=== PATIENT | male | born 1945 | race Caucasian/White ===

== ENCOUNTER 2020-12-27 12:45 | Emergency (ER) | payer OTHER, MEDICARE ==
[2020-12-27 12:57] VITALS: BP 112/55; PULSE 55
[2020-12-27] MEDS ORDERED: Sodium Chloride 0.9% 10 ML Syringe FLUSH PRN (13:20)
--- NOTE | 2020-12-27 13:57 | EDM.PDOC ---
ED HPI GENERAL MEDICAL PROBLEM - General Chief Complaint: General Time Seen by Provider: 12/27/20 13:00 Source of Information: Reports: Patient History Limitations: Reports: No Limitations - History of Present Illness INITIAL COMMENTS - FREE TEXT/NARRATIVE: Pt. presents to ER with complaints of acute onset R sided facial numbness and bilateral posterior lower extremity numbness. Pt. has a history of Lewey Body dementia and is relying heavily on his regarding the onset and timing of symptoms. Pt. states that the facial numbness has resolved but he continues to have numbness in the posterior aspect of his lower legs. The facial numbness lasted about 30 min. and was resolved by the time he arrived to ER (onset 12:00 today). He also complained of "dizziness". Pt. states that he was [place] with his at onset of symptoms. states that his speech was fluent throughout the event. She did not notice any facial droop, dysarthria or aphasia. Pt. denies any headache. He denies any acute vision loss or change. Pt. states that the facial numbness today is new, but he states that he has experienced numbness in his lower extremities intermittently in the past. He states that the numbness today is isolated to the posterior aspect of both legs. Pt. denies any numbness/tingling/weakness in upper extremities or torso, vision loss or change, headache, neck pain, new gait disturbances. [facility], he has a slow, shuffling gait which is present on arrival to ER today. Pt. is currently on plavix for CAD. He is not on coumadin or other anticoagulati on. Denies any history of recent intracranial pathology or surgery. Denies any recent episodes of bleeding or blood loss. Denies any history of previous embolic or hemorrhagic CVA in the past. No history of previous craniotomy, aneurysm, brain tumors or masses. [facility] They were contacted to send any neurology noted to determine what this patient's baseline neuro status is given his history of Lewey Body. Unfortunately they were unable to locate a note with a recent neuro exam on it. Pt. is on rivastigmine patch,donepezil and quetiapine. Onset: Today Onset Date: 12/27/20 Onset Time: 12:00 Location: Reports: Generalized - Related Data Allergies Allergy/AdvReac Type Severity Reaction Status Date / Time ag chemicals Allergy Itching Uncoded 12/27/20 13:01 Home Meds: Home Meds Multivitamin with Minerals [Multiple Vitamin] 1 tab PO DAILY 02/14/15 [History] Clopidogrel [Plavix] 75 mg PO DAILY 07/02/16 [History] Isosorbide Mononitrate [Isosorbide Mononitrate ER] 30 mg PO DAILY 07/02/16 [History] Metoprolol Succinate [Toprol XL 100mg] 50 mg PO DAILY 07/02/16 [History] Donepezil HCl [Aricept] 10 mg PO DAILY 12/27/20 [History] atorvaSTATin [Lipitor] 5 mg PO BEDTIME 12/27/20 [History] Past Medical History Other HEENT History: glasses Cardiovascular History: Reports: CAD, High Cholesterol, Hypertension, Stents Other Neuro History: lewy body dementia Other Dermatologic History: shingles - Past Surgical History Cardiovascular Surgical History: Reports: Coronary Artery Stent Social & Family History - Tobacco Use Tobacco Use Status *Q: Never Tobacco User ED ROS GENERAL - Review of Systems Review Of Systems: See Below Constitutional: Reports: No Symptoms. Denies: Fever, Chills, Malaise, Weakness, Fatigue, Weight Loss, Weight Gain HEENT: Reports: No Symptoms Respiratory: Reports: No Symptoms Cardiovascular: Reports: No Symptoms Endocrine: Reports: No Symptoms GI/Abdominal: Reports: No Symptoms : Reports: No Symptoms Musculoskeletal: Reports: No Symptoms Skin: Reports: No Symptoms Neurological: Reports: Dizziness, Numbness, Pre-Existing Deficit, Difficulty Walking (slow, shffling gait) Psychiatric: Reports: No Symptoms Hematologic/Lymphatic: Reports: No Symptoms Immunologic: Reports: No Symptoms ED EXAM, GENERAL - Physical Exam Exam: See Below General Appearance: Alert, WD/WN, No Apparent Distress Eye Exam: Bilateral Eye: EOMI, Normal Fundi, Normal Inspection, PERRL Throat/Mouth: Normal Inspection, Normal Lips, Normal Teeth, Normal Gums, Normal Oropharynx, Normal Voice, No Airway Compromise Head: Atraumatic, Normocephalic Neck: Normal Inspection, Supple, Non-Tender, Full Range of Motion Respiratory/Chest: No Respiratory Distress, Lungs Clear, Normal Breath Sounds, No Accessory Muscle Use, Chest Non-Tender Cardiovascular: Normal Peripheral Pulses, Regular Rate, Rhythm, No Edema, No JVD, No Murmur Peripheral Pulses: 4+: Radial (L) GI/Abdominal: Soft, Non-Tender, No Organomegaly, No Distention, No Abnormal Bruit, No Mass (Male) Exam: Deferred Rectal (Males) Exam: Deferred Back Exam: Normal Inspection, Full Range of Motion Extremities: Normal Inspection, Normal Range of Motion, Non-Tender, No Pedal Edema, Normal Capillary Refill Neurological: Alert, Oriented, CN II-XII Intact, Normal Cognition, Normal Reflexes, Abnormal Gait, Sensory/Motor Deficit (R side of face, resolved, bilateral posterior legs) Psychiatric: Normal Affect, Flat Affect Skin Exam: Warm, Dry, Intact, Normal Color, No Rash Lymphatic: No Adenopathy #1 Interpretation Rhythm: NSR [place]: Normal P-Wave: Present QRS: Normal ST-T: Normal QT: Normal Course - Vital Signs Last Recorded V/S: Last Vital Signs Temp 36.5 C 12/27/20 12:45 Pulse 55 L 12/27/20 12:45 Resp 16 12/27/20 12:45 BP 112/55 L 12/27/20 12:45 Pulse Ox 97 12/27/20 12:45 - Orders/Labs/Meds Orders: Active Orders 24 hr Category Date Time Status Ang Neck [CT] Stat Exams 12/27/20 14:54 Ordered Peripheral IV Insertion Adult [OM.PC] Routine Oth 12/27/20 13:21 Ordered Labs: Laboratory Tests 12/27/20 12/27/20 12/27/20 Range/Units 13:30 13:30 13:30 WBC 7.0 (4.0-10.0) x10^3/uL RBC 4.03 L (4.5-6.0) x10^6/uL Hgb 13.7 L (14.0-18.0) g/dL Hct 38.8 L (40.0-52.0) % MCV 96.3 H (78.0-93.0) fL MCH 34.0 H (26.0-32.0) pg MCHC 35.3 (32.0-36.0) g/dL RDW Coeff of Amaury 12.2 (10.0-15.0) % Plt Count 163 (130-400) x10^3/uL Neut % (Auto) 64.6 (50.0-80.0) % Lymph % (Auto) 19.7 L (25.0-50.0) % Coal % (Auto) 10.1 (2.0-11.0) % Eos % (Auto) 5.3 H (0.0-4.0) % Baso % (Auto) 0.3 (0.2-1.2) % PT 10.6 (9.9-12.5) SEC INR 1.0 L (2.0-3.5) APTT (25.6-32.8) SEC Sodium 142 (136-145) mmol/L Potassium 4.0 (3.5-5.1) mmol/L Chloride 106 (98-107) mmol/L Carbon Dioxide 25 (21-32) mmol/L Anion Gap 15.0 (5-15) mmol/L BUN 20 H (7-18) mg/dL Creatinine 0.9 (0.70-1.30) mg/dL Est Cr Clr Drug Dosing TNP Estimated GFR (MDRD) > 60 Glucose 96 (70-99) mg/dL Calcium 8.2 L (8.5-10.1) mg/dL Corrected Calcium 8.6 (8.5-10.1) mg/dL Phosphorus 4.0 (2.6-4.7) mg/dL Magnesium 2.1 (1.8-2.4) mg/dL Total Bilirubin 0.4 (0.2-1.0) mg/dL AST 21 (15-37) U/L ALT 32 (16-63) U/L Alkaline Phosphatase 79 (46-116) U/L Troponin I High Sens 7 (<=76) ng/L Total Protein 6.6 (6.4-8.2) g/dL Albumin 3.5 (3.4-5.0) g/dL Globulin 3.1 Albumin/Globulin Ratio 1.13 TSH, Ultra Sensitive 1.199 (0.358-3.74) uIU/mL 12/27/20 Range/Units 13:30 WBC (4.0-10.0) x10^3/uL RBC (4.5-6.0) x10^6/uL Hgb (14.0-18.0) g/dL Hct (40.0-52.0) % MCV (78.0-93.0) fL MCH (26.0-32.0) pg MCHC (32.0-36.0) g/dL RDW Coeff of Amaury (10.0-15.0) % Plt Count (130-400) x10^3/uL Neut % (Auto) (50.0-80.0) % Lymph % (Auto) (25.0-50.0) % Coal % (Auto) (2.0-11.0) % Eos % (Auto) (0.0-4.0) % Baso % (Auto) (0.2-1.2) % PT (9.9-12.5) SEC INR (2.0-3.5) APTT 24.1 L (25.6-32.8) SEC Sodium (136-145) mmol/L Potassium (3.5-5.1) mmol/L Chloride (98-107) mmol/L Carbon Dioxide (21-32) mmol/L Anion Gap (5-15) mmol/L BUN (7-18) mg/dL Creatinine (0.70-1.30) mg/dL Est Cr Clr Drug Dosing Estimated GFR (MDRD) Glucose (70-99) mg/dL Calcium (8.5-10.1) mg/dL Corrected Calcium (8.5-10.1) mg/dL Phosphorus (2.6-4.7) mg/dL Magnesium (1.8-2.4) mg/dL Total Bilirubin (0.2-1.0) mg/dL AST (15-37) U/L ALT (16-63) U/L Alkaline Phosphatase (46-116) U/L Troponin I High Sens (<=76) ng/L Total Protein (6.4-8.2) g/dL Albumin (3.4-5.0) g/dL Globulin Albumin/Globulin Ratio TSH, Ultra Sensitive (0.358-3.74) uIU/mL Meds: Medications Discontinued Medications Generic Name Dose Route Start Last Admin Trade Name Freq PRN Reason Stop Dose Admin Aspirin 324 mg 12/27/20 16:49 12/27/20 16:53 Aspirin 81 Mg Tab.Chew PO 12/27/20 16:50 324 mg ONETIME ONE Administration Sodium Chloride 10 ml 12/27/20 13:20 Sodium Chloride 0.9% 10 Ml Syringe FLUSH ASDIRECTED PRN Keep Vein Open - Radiology Interpretation Free Text/Narrative:: CT brain without contrast negative for acute pathology CTA head and neck negative for acute pathology or evidence of acute stroke. Departure - Departure Time of Disposition: 17:18 Disposition: Home, Self-Care 01 Clinical Impression: TIA (transient ischemic attack) - Discharge Information Instructions: Transient Ischemic Attack, [id number] Referrals: PCP,Not In Area [Primary Care Provider] - Forms: ED Department Discharge Additional Instructions: I spoke with Dr. Brandt, neurologist at [facility]. He suggests starting baby aspirin 81mg once daily in addition to your Plavix. You can follow-up tomorrow with Dr. Garsia tomorrow. Return to ER if you develop symptoms such as facial or extremity numbness/weakness, trouble speaking, walking, vision loss or change. Sepsis Event Note (ED) - Evaluation Sepsis Screening Result: No Definite Risk - Focused Exam Vital Signs: Vital Signs Temp Pulse Resp BP Pulse Ox 12/27/20 12:45 36.5 C 55 L 16 112/55 L 97 - Problem List Review Problem List Initiated/Reviewed/Updated: Yes - My Orders Last 24 Hours: My Active Orders 12/27/20 13:21 Peripheral IV Insertion Adult [OM.PC] Routine 12/27/20 14:54 Ang Neck [CT] Stat - Assessment/Plan Last 24 Hours: My Active Orders 12/27/20 13:21 Peripheral IV Insertion Adult [OM.PC] Routine 12/27/20 14:54 Ang Neck [CT] Stat Plan: Discussed case with Dr. Brandt, neurologist senior data integration developer at [facility]. He advised having the patient follow-up in the clinic tomorrow, since all of the patient
--- NOTE | 2020-12-27 14:50 | CT ---
[id number] CT/CT Head WO IV EXAM: NONCONTRAST HEAD CT INDICATION: RIGHT SIDED FACIAL NUMBNESS. COMPARISON: None. DISCUSSION: The ventricles and sulci are normal in size and configuration. Mild multifocal white matter hypoattenuation is nonspecific, but generally ascribed to chronic small vessel ischemia. No mass effect or midline shift. No acute hemorrhage or extra-axial fluid collection. No acute territorial infarct is identified. A limited look at the orbits and paranasal sinuses is unremarkable. IMPRESSION: 1. No acute findings. Tien Sales MD 12/27/20 [id number] Thank you for allowing us to participate in the care of your patient.
[2020-12-27 15:22] LABS: CHLORIDE,CL 106 mmol/L (98-107); SODIUM,NA 142 mmol/L (136-145)
--- NOTE | 2020-12-27 16:19 | CT ---
[id number] CT/CTA Head Neck EXAM: CT angiogram head and neck INDICATION: RIGHT SIDED FACIAL NUMBNESS. COMPARISON: Head CT same date. DISCUSSION: Aortic arch: Scattered atherosclerotic plaque without other abnormality identified in the partially imaged arch. Right carotid artery: Hard and soft plaque at the common carotid artery bifurcation and mild hard plaque within the cavernous segment of the internal carotid artery. No significant stenosis, aneurysmal dilation, dissection or other acute findings. Left carotid artery: Mild tortuosity of the internal carotid artery. Mild hard plaque at the common carotid artery bifurcation and involving the cavernous segment of the internal carotid artery without significant stenosis, aneurysmal dilation, dissection or other acute findings. Right vertebral artery: Normal in caliber. No significant stenosis or other abnormality. Left vertebral artery: Normal in caliber. No significant stenosis or other abnormality. Basilar artery: Normal in caliber. No significant stenosis or other abnormality. [place] of [place]: origin of the left posterior cerebral artery, normal variant. The [place] of [place] is otherwise unremarkable with no vessel cut off, significant stenosis, aneurysm, or other acute findings. Dural sinuses, jugular veins and cerebral veins: Limited evaluation of the cerebral veins, dural sinuses and jugular veins is unremarkable. Brain parenchyma: Unremarkable. The neck soft tissues: Unremarkable. Osseous structures: Moderate cervical spondylosis. IMPRESSION: 1. No acute findings. Tien Sales MD 12/27/20 [id number] Thank you for allowing us to participate in the care of your patient.
[2020-12-27] MEDS ORDERED: Aspirin 81 MG Tab.Chew PO ONE (16:49)
== END 2020-12-27 17:01 | disposition home or self-care (01) ==
LOC: VM.ED 12:45
DX: G45.9 Transient cerebral ischemic attack, unspecified (principal); I25.10 Atherosclerotic heart disease of native coronary artery without angina pectoris; I10 Essential (primary) hypertension; E78.00 Pure hypercholesterolemia, unspecified; Z88.8 Allergy status to other drugs, medicaments and biological substances; Z79.899 Other long term (current) drug therapy
CPT/HCPCS: 70450; 70496; 80053; 83735; 84100; 84443; 84484; 85025; 85610; 85730; 93005; 93010; 99284; 99284-25; A9270-GY

== ENCOUNTER 2021-09-19 04:42 | Emergency (ER) | payer OTHER, MEDICARE ==
[2021-09-19 05:33] VITALS: BP 118/66; PULSE 52
== END 2021-09-19 05:40 | disposition home or self-care (01) ==
LOC: VM.ED 04:42
DX: S01.01XA Laceration without foreign body of scalp, initial encounter (principal); I25.10 Atherosclerotic heart disease of native coronary artery without angina pectoris; E78.00 Pure hypercholesterolemia, unspecified; I10 Essential (primary) hypertension; Z95.5 Presence of coronary angioplasty implant and graft; Z79.02 Long term (current) use of antithrombotics/antiplatelets; Z79.899 Other long term (current) drug therapy; Z91.048 Other nonmedicinal substance allergy status; W06.XXXA Fall from bed, initial encounter
CPT/HCPCS: 12001; 70450; 99283; 99283-25

== ENCOUNTER 2022-01-03 11:16 | Emergency (ER) | payer OTHER, MEDICARE ==
[2022-01-03] MEDS ORDERED: Sodium Chloride 0.9% 10 ML Syringe FLUSH PRN (11:52)
[2022-01-03] MEDS ORDERED: Sodium Chloride 0.9% 1,000 ML IV SCH (12:00)
[2022-01-03 12:22] LABS: CHLORIDE,CL 106 mmol/L (98-107); SODIUM,NA 140 mmol/L (136-145)
[2022-01-03 12:23] LABS: ANION GAP 13.8 mmol/L (5-15); ESTIMATED GFR 78 mL/min (>=60)
[2022-01-03 12:33] VITALS: BP 119/56; PULSE 77
== END 2022-01-03 13:35 | disposition home or self-care (01) ==
LOC: VM.ED 11:16
DX: R55 Syncope and collapse (principal); I25.10 Atherosclerotic heart disease of native coronary artery without angina pectoris; E78.00 Pure hypercholesterolemia, unspecified; I10 Essential (primary) hypertension; Z91.048 Other nonmedicinal substance allergy status; Z95.5 Presence of coronary angioplasty implant and graft; Z79.02 Long term (current) use of antithrombotics/antiplatelets; Z79.82 Long term (current) use of aspirin; Z79.899 Other long term (current) drug therapy
CPT/HCPCS: 80053; 83735; 84100; 84443; 84484; 85025; 85379; 93005; 96360; 99284; J7030

== ENCOUNTER 2022-05-01 19:22 | Emergency (ER) | payer OTHER, MEDICARE ==
[2022-05-01] MEDS ORDERED: Acetaminophen 325 MG Tab PO ONE (20:03)
[2022-05-01 20:34] LABS: CHLORIDE,CL 103 mmol/L (98-107); SODIUM,NA 139 mmol/L (136-145)
[2022-05-01 20:39] LABS: ANION GAP 13.1 mmol/L (5-15); ESTIMATED GFR 78 mL/min (>=60)
[2022-05-01 20:40] LABS: CORONAVIRUS COVID-19 NAA INVALID (NEGATIVE)
[2022-05-01 21:24] LABS: CORONAVIRUS COVID-19 NAA POSITIVE (NEGATIVE)
[2022-05-01] MEDS ORDERED: diphenhydrAMINE 50 MG/ML SDV IVPUSH PRN (21:28)
[2022-05-01] MEDS ORDERED: EPINEPHrine 1 MG/1 ML Amp IM PRN (21:28)
[2022-05-01] MEDS ORDERED: methylPREDNISolone Sodium Succinate 125 MG/2 ML SDV IVPUSH PRN (21:28)
[2022-05-01] MEDS ORDERED: Famotidine 20 MG/2 ML SDV IVPUSH PRN (21:28)
[2022-05-01] MEDS ORDERED: Sodium Chloride 0.9% 10 ML Syringe FLUSH SCH (21:30)
[2022-05-01 23:21] VITALS: BP 132/76; PULSE 70
== END 2022-05-01 23:02 | disposition home or self-care (01) ==
LOC: VM.ED 19:22
DX: U07.1 COVID-19 (principal); I25.10 Atherosclerotic heart disease of native coronary artery without angina pectoris; I10 Essential (primary) hypertension; E78.00 Pure hypercholesterolemia, unspecified; F03.90 Unspecified dementia, unspecified severity, without behavioral disturbance, psychotic disturbance, mood disturbance, and anxiety; Z95.5 Presence of coronary angioplasty implant and graft; Z91.048 Other nonmedicinal substance allergy status; Z79.02 Long term (current) use of antithrombotics/antiplatelets; Z79.82 Long term (current) use of aspirin; Z79.899 Other long term (current) drug therapy
CPT/HCPCS: 0240U; 36415; 71045; 80053; 83605; 84145; 85025; 86140; 87040; 99284; A9270; M0222; Q0222